=== PATIENT | female | born 1950 ===

== ENCOUNTER 2017-11-16 03:03 | Emergency (ER) | payer MEDICARE, OTHER ==
[2017-11-16 03:03] VITALS: BMI 24.2
[2017-11-16 03:33] VITALS: BP 172/69; PULSE 82; RESP 16; TEMP 98.3; O2SAT 98
--- NOTE | 2017-11-16 05:54 | ED PDOC ---
Upper Extremity Pain/Injury Time Seen by Provider: 11/16/17 03:59 Chief Complaint (Nursing): Upper Extremity Problem/Injury History Per: Patient, Family (daughter) Additional Complaint(s): Pt. states this evening she developed atraumatic R thumb pain radiating to the R upper arm. Reports she's had same pain intermittently over the past 2 years. Pt. states she was dx with arthritis in the R thumb by her PMD but has not had any imaging test. Pt. states usually pain just radiates to the R forearm. Denies trauma, numbness, weakness, shoulder pain, chest pain, fever. Past Medical History Reviewed: Historical Data, Nursing Documentation, Vital Signs Vital Signs: Last Vital Signs Temp 98.3 F 11/16/17 03:26 Pulse 82 11/16/17 03:26 Resp 16 11/16/17 03:26 BP 172/69 H 11/16/17 03:26 Pulse Ox 98 11/16/17 03:26 - Medical History PMH: Arthritis ("ALL OVER"), HTN, Hypercholesterolemia, Hypothyroidism, Pulmonary Embolism Denies: Chronic Kidney Disease - Family History Family History: States: No Known Family Hx - Home Medications Home Medications: Ambulatory Orders Medication Instructions Recorded Clopidogrel [Plavix] 1 tab PO DAILY 08/09/16 Mometasone/Formoterol [Dulera 200 1 puff IH DAILY 08/09/16 Mcg/5 Mcg Inhaler] Aspirin 1 tab PO DAILY 05/15/17 Atorvastatin [Lipitor] 1 tab PO DAILY 05/15/17 Carvedilol [Coreg] 1 tab PO BID 05/15/17 Insulin Aspar/Insulin N 70/30 20 unit SQ QPM 05/15/17 [Novolog Mix 70/30-U/ml 3Ml] Insulin Aspar/Insulin N 70/30 40 unit SQ DAILY 05/15/17 [Novolog Mix 70/30-U/ml 3Ml] Insulin Detemir [Levemir] 20 unit SQ PRN PRN 05/15/17 Levothyroxine [Synthroid] 1 tab PO DAILY 05/15/17 hydroCHLOROthiazide [Hydrodiuril] 1 tab PO DAILY 05/15/17 metFORMIN [glucOPHAGE] 1 tab PO DAILY 05/15/17 - Allergies Allergies/Adverse Reactions: Allergies Allergy/AdvReac Type Severity Reaction Status Date / Time No Known Allergies Allergy Verified 08/09/16 08:46 Review of Systems ROS Statement: Except As Marked, All Systems Reviewed And Found Negative Physical Exam - Physical Exam Appears: Positive for: Well, Non-toxic, No Acute Distress Skin: Positive for: Normal Color, Warm. Negative for: Rash Eye Exam: Positive for: Normal appearance Pulses-Radial (L): 2+ Pulses-Radial (R): 2+ Extremity: Positive for: Other (R thumb with mild tenderness over IP joint without erythema, swelling, or deformity; FROM actively of R thumb; cap refill < 2 seconds of R thumb) Neurologic/Psych: Positive for: Alert, Oriented - ECG O2 Sat by Pulse Oximetry: 98 - Progress ED Course And Treament: Pt. took tylenol at home. Ultram 50mg PO ordered. Pt. placed in preformed thumb spica splint by installation technician. Pt. was offered x-rays but refused and states she will f/u with PMD instead. Disposition - Clinical Impression Clinical Impression: Thumb pain - Patient ED Disposition Is Patient to be Admitted: No - Disposition Referrals: [facility] [Outside] [facility] [Outside] Radames Worthington III, MD [Staff Provider] - Disposition: Routine/Home Disposition Time: 04:40 Condition: IMPROVED Additional Instructions: Follow up with orthopedist for further evaluation. Return to ED immediately if symptoms worsen. Instructions: Muscle and Bone Pain (DC) Forms: [employer] [facility] (Palestinian) Print Language: [email or web address]
== END 2017-11-16 04:49 | disposition home or self-care (01) ==
LOC: H.ER 03:03
DX: M79.644 Pain in right finger(s) (principal); I10 Essential (primary) hypertension; Z79.82 Long term (current) use of aspirin; E03.9 Hypothyroidism, unspecified; E78.00 Pure hypercholesterolemia, unspecified; Z86.711 Personal history of pulmonary embolism; M19.90 Unspecified osteoarthritis, unspecified site